=== PATIENT | female | born 1955 | race Caucasian/White ===

== ENCOUNTER 2019-01-30 16:02 | Emergency (ER) | payer OTHER ==
[2019-01-30 16:15] VITALS: BP 129/78; PULSE 100; TEMP 99.6; BMI 24.5
--- NOTE | 2019-01-30 16:15 | PDOC ---
Rapid Medical Evaluation Chief Complaint: Toothache Time Seen by Provider: 01/30/19 16:13 Medical Evaluation: Allergies Allergy/AdvReac Type Severity Reaction Status Date / Time No Known Allergies Allergy Verified 04/20/12 14:01 01/30/19 16:13 This patient had a brief in-person evaluation by me. cc: swelling to left side of face since last night Patient reports caries in upper left molar denies fever or chills PE: NAD HEENT: + swelling to left side of face, speech clear Orders: none This patient will proceed to Ed for further evaluation Discharge Disposition - Diagnosis Abscess, dental - Discharge Dispostion Disposition: HOME Condition at time of disposition: Stable - Prescriptions Prescriptions: Clindamycin [Cleocin -] 300 mg PO TID #21 capsule Naproxen [Naprosyn -] 500 mg PO BID #30 tablet - Referrals Referrals: Jocelyne Feng MD [Primary Care Provider] - - Patient Instructions Printed Discharge Instructions: DI for Tooth Abscess Additional Instructions: Rest, drink lots of fluids: Teas, water, soups Saltwater gargles/ keep mouth clean and rinse after each meal May use wet teabag for pain relief to area Avoid hard chewing foods, stick to ice cream, Jell-O, yogurt etc. Tylenol or Motrin for fever and pain Complete all medication as prescribed Seek dental appointment as soon as possible for evaluation of dental injury/pain Followup with private physician in one to 2 days as needed Return to emergency department for worsened symptoms, fevers, swelling to face or worsened pain Return here tomorrow for wound check - Post Discharge Activity
[2019-01-30] MEDS ORDERED: CLINDAMYCIN 600MG PREMIX IVPB 600 MG/50 ML BAG IVPB ONE ×2 (16:57→17:07)
[2019-01-30] MEDS ORDERED: KETOROLAC TROMETHAMINE 30 MG/1 ML VIAL IVPUSH ONE (16:57)
[2019-01-30] MEDS ORDERED: KETOROLAC TROMETHAMINE 30 MG/1 ML VIAL ONE ×2 (17:07→17:10)
[2019-01-30] MEDS ORDERED: CLINDAMYCIN PHOSPHATE 600 MG/4 ML VIAL ONE (17:10)
--- NOTE | 2019-01-30 17:14 | PDOC ---
History of Present Illness - General Chief Complaint: Toothache Stated Complaint: RT SIDE FACE SWOLLEN Time Seen by Provider: 01/30/19 16:13 History Source: Patient Exam Limitations: No Limitations - History of Present Illness Initial Comments: 01/30/19 16:59 Patietn with multiple dental issues and molars, was seen by dentist today and sent to emergency department as has facial cellulitis due to a cracked an abscessed upper left molar. Had onset of facial swelling yesterday is progressively worsened today. 01/31/19 11:45 Timing/Duration: unsure, 24 hours Severity: moderate Associated Symptoms: reports: headaches, malaise. denies: fever/chills Past History - Travel Traveled outside of the country in the last 30 days: No Close contact w/someone who was outside of country & ill: No - Past Medical History Allergies/Adverse Reactions: Allergies Allergy/AdvReac Type Severity Reaction Status Date / Time No Known Allergies Allergy Verified 04/20/12 14:01 Home Medications: Ambulatory Orders Calcium Carb/Vit D3/Minerals [Calcium 600 + D Tablet] 1 each PO DAILY 04/20/12 Loratadine/Pseudoephedrine [Claritin-D 12 Hour Tab SA] 10 mg PO DAILY 04/20/12 Clindamycin [Cleocin -] 300 mg PO TID #21 capsule 01/30/19 Naproxen [Naprosyn -] 500 mg PO BID #30 tablet 01/30/19 Anemia: No Asthma: No Cancer: No Cardiac Disorders: No CVA: No COPD: No CHF: No Dementia: No Diabetes: No GI Disorders: No Disorders: No HTN: Yes Hypercholesterolemia: No Liver Disease: No Seizures: No Thyroid Disease: No - Surgical History Abdominal Surgery: No Appendectomy: No Cardiac Surgery: No Cholecystectomy: No Lung Surgery: No Neurologic Surgery: No Orthopedic Surgery: No - Suicide/Smoking/Psychosocial Hx Smoking History: Never smoked Have you smoked in the past 12 months: Yes Number of Cigarettes Smoked Daily: 4 Information on smoking cessation initiated: No 'Breaking Loose' booklet given: 04/22/12 Hx Alcohol Use: No Drug/Substance Use Hx: No Substance Use Type: None Hx Substance Use Treatment: No Review of Systems - Review of Systems Able to Perform ROS?: Yes Is the patient limited Indonesian proficient: Yes Constitutional: Yes: Symptoms Reported, See HPI, Malaise. No: Fever HEENTM: Yes: Symptoms Reported, See HPI, Mouth Pain, Mouth Swelling Integumentary: Yes: Symptoms Reported, Erythema Neurological: Yes: Symptoms reported, See HPI, Headache All Other Systems: Reviewed and Negative *Physical Exam - Vital Signs Last Vital Signs Temp Pulse Resp BP Pulse Ox 99.6 F 100 H 19 129/78 100 01/30/19 16:13 01/30/19 16:13 01/30/19 16:13 01/30/19 16:13 01/30/19 16:13 - Physical Exam General Appearance: Yes: Nourished, Appropriately Dressed, Apparent Distress, Moderate Distress HEENT: positive: RAY[place], TMs Normal, Other (extensive dental work with implants except for 4 separate teeth that have erosion and cracking. Left upper middle molar shows cracked in half with erythematous gum lines, however no pointing lesion, is mildly tender to the external gingival surface where patient states had the lesion that was opened by dentist.) Neck: positive: Supple. negative: Tender, Lymphadenopathy (R), Lymphadenopathy (L) Respiratory/Chest: positive: Lungs Clear, Normal Breath Sounds. negative: Respiratory Distress Gastrointestinal/Abdominal: positive: Soft. negative: Tender Musculoskeletal: positive: Normal Inspection Extremity: positive: Normal Capillary Refill Integumentary: positive: Warm, Erythema (to left side of face ). 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 Laboratory work reveals a white count of 15.5 but due to patient's second resolving and requests to be discharged due to some needs at home will discharge on by mouth clindamycin anti-inflammatories and have return here tomorrow for wound check which patient will agree *DC/Admit/Observation/Transfer Diagnosis at time of Disposition: Abscess, dental - Discharge Dispostion Disposition: HOME Condition at time of disposition: Stable Decision to Admit order: No - Prescriptions Prescriptions: Clindamycin [Cleocin -] 300 mg PO TID #21 capsule Naproxen [Naprosyn -] 500 mg PO BID #30 tablet - Referrals Referrals: Jocelyne Feng MD [Primary Care Provider] - - Patient Instructions Printed Discharge Instructions: DI for Tooth Abscess Additional Instructions: Rest, drink lots of fluids: Teas, water, soups Saltwater gargles/ keep mouth clean and rinse after each meal May use wet teabag for pain relief to area Avoid hard chewing foods, stick to ice cream, Jell-O, yogurt etc. Tylenol or Motrin for fever and pain Complete all medication as prescribed Seek dental appointment as soon as possible for evaluation of dental injury/pain Followup with private physician in one to 2 days as needed Return to emergency department for worsened symptoms, fevers, swelling to face or worsened pain Return here tomorrow for wound check - Post Discharge Activity
[2019-01-30 17:39] LABS: BASO % 0.5 % (0-2.0); EOS % 0.4 % (0-4.5); HEMATOCRIT 43.2 % (32.4-45.2); HEMOGLOBIN 14.4 GM/dL (10.7-15.3); LYMPH % 22.9 % (8-40); MCHC 33.4 g/dl (32.0-36.0); MEAN CELL VOLUME 92.7 fl (80-96); MEAN PLT VOLUME 10.7 fl (7.5-11.1); MONO % 7.9 % (3.8-10.2); NEUT % 68.3 % (42.8-82.8); PLATELET COUNT 196 K/MM3 (134-434); RBC 4.66 M/mm3 (3.60-5.2); RDW 13.7 % (11.6-15.6); WHITE BLOOD COUNT 15.5 K/mm3 (4.0-10.0)
[2019-01-30 18:27] LABS: BILIRUBIN,TOTAL 0.4 mg/dL (0.2-1); BLOOD UREA NITROGEN 13.1 mg/dL (7-18); CALCIUM 9.4 mg/dL (8.5-10.1); CREATININE 0.6 mg/dL (0.55-1.3); POTASSIUM 3.8 mmol/L (3.5-5.1); TOT PROT 7.6 g/dl (6.4-8.2)
== END 2019-01-30 18:57 | disposition home or self-care (01) ==
LOC: JERFT 16:02
PROC: 3E03329 Introduction of Other Anti-infective into Peripheral Vein, Percutaneous Approach (ICD-10-PCS; principal; 2019-01-30)
PROC: 3E0333Z Introduction of Anti-inflammatory into Peripheral Vein, Percutaneous Approach (ICD-10-PCS; 2019-01-30)
DX: K04.7 Periapical abscess without sinus (principal)
CPT/HCPCS: 36415; 80053; 85025; 96365; 96375; 99281-25